=== PATIENT | female | born 1970 | race Caucasian/White ===

== ENCOUNTER 2022-10-06 19:29 | Emergency (ER) | payer OTHER ==
[2022-10-06 20:12] VITALS: TEMP 98
[2022-10-06] MEDS ORDERED: SODIUM CHLORIDE 0.9% 1,000 ML IV STA (20:51)
[2022-10-06] MEDS ORDERED: ONDANSETRON 4 MG/2 ML VIAL IVP STA (20:51)
[2022-10-06] MEDS ORDERED: MORPHINE SULFATE 4 MG/ML SYRINGE IV STA (20:51)
--- NOTE | 2022-10-06 20:51 | ED ---
Abdominal Pain HPI - General Chief Complaint: Abdominal Pain Stated Complaint: Abd pain Time Seen by Provider: 10/06/22 20:37 Source: EMS, RN notes reviewed Mode of arrival: EMS Limitations: no limitations - History of Present Illness Initial Comments: This is a pleasant 52-year-old female who comes to the ER complaining of epigastric abdominal pain. She is also complaining of bilateral lower leg swelling. Patient states that she currently is at [facility] for alcohol rehabilitation. She is been there since the seventh. Patient states she got out of [facility] 2 weeks ago after being treated for pancreatitis and gastritis. Apparently the patient also required blood transfusion at that time. She stated as an inpatient for several days. Note that the patient states she has not had any alcohol since being discharged from that facility. Patient has a history of alcoholism. , Nausea/vomiting, No headache, no fever or chills, no changes in vision or hearing, no sore throat or difficulty with speech, no neck pain, no chest pain or shortness of breath, some nausea but no vomiting. Loose bowel movements. No evidence of hematochezia or melena.no changes in urination or bowel movements, no numbness or tingling, no extremity pain, no skin rashes or lesions. Past medical, surgical, social, and family history reviewed. MD Complaint: abdominal pain - Related Data Previous Rx's Medication Instructions Recorded Acetaminophen Tab [Tylenol Tab] 500 mg PO Q6H PRN #24 tablet 10/07/22 Omeprazole [PriLOSEC] 20 mg PO DAILY #30 cap 10/07/22 Allergies Allergy/AdvReac Type Severity Reaction Status Date / Time No Known Allergies Allergy Verified 10/06/22 20:12 Review of Systems ROS Statement: Those systems with pertinent positive or pertinent negative responses have been documented in the HPI. ROS Other: All systems not noted in ROS Statement are negative. Past Medical History Past Medical History: GI Bleed Additional Past Medical History / Comment(s): pancrentitis History of Any Multi-Drug Resistant Organisms: None Reported Past Surgical History: No Surgical Hx Reported Past Psychological History: Anxiety, Depression Smoking Status: Current every day smoker Past Alcohol Use History: Abuse, Daily Past Drug Use History: Marijuana General Exam - General Exam Comments Initial Comments: Patient does not appear to be ill or toxic. Vital signs reviewed. Capillary refill less than 2 seconds. No evidence of skin mottling Limitations: no limitations General appearance: alert, in no apparent distress Head exam: Present: atraumatic, normocephalic, normal inspection Eye exam: Present: normal appearance, PERRL, EOMI. Absent: scleral icterus, conjunctival injection, periorbital swelling ENT exam: Present: normal exam, normal oropharynx, mucous membranes moist, normal external ear exam. Absent: mucous membranes dry Neck exam: Present: normal inspection, full ROM. Absent: tenderness, meningismus, lymphadenopathy Respiratory exam: Present: normal lung sounds bilaterally. Absent: respiratory distress, wheezes, rales, rhonchi, stridor, chest wall tenderness, accessory muscle use Cardiovascular Exam: Present: regular rate, normal rhythm, normal heart sounds. Absent: systolic murmur, diastolic murmur, rubs, gallop, clicks GI/Abdominal exam: Present: soft, tenderness (Epigastric area), guarding, normal bowel sounds. Absent: distended, rebound, rigid Extremities exam: Present: normal inspection, full ROM, normal capillary refill, pedal edema. Absent: tenderness, joint swelling, calf tenderness Back exam: Present: normal inspection Neurological exam: Present: alert, oriented X3, CN II-XII intact Psychiatric exam: Present: normal affect, normal mood Skin exam: Present: warm, dry, intact, normal color. Absent: rash Course Vital Signs 10/06/22 10/06/22 20:10 21:57 Temperature 98 F Pulse Rate 83 77 Respiratory 18 16 Rate Blood Pressure 115/68 129/70 O2 Sat by Pulse 98 98 Oximetry - Reevaluation(s) Reevaluation #1: 10/06/22 23:49 Medical record is reviewed Patient pain peralta is better. However continues to have some epigastric pain. Complaining of pain in her lower extremities. I suspect the lower extremity edema is related to the patient's low albumin of 2.8. Patient is informed of results and questions answered Patient in no distress Reevaluation #2: 10/07/22 00:38 Was reevaluated and is actually doing much better after IV fluids. Patient holding down fluids without difficulty. Hemoccult was negative. Patient's pain is better. I did discuss the case in detail with the on-call spinner fixer at [facility], Dr. Rey. who reviewed the patient's case from [facility]. According to his judgment, patient does not need transfer. In fact, after this I did reassess the patient she is holding down fluids without difficulty. I did offer her admission here for IV hydration. Patient states that she just wants medicine she takes at night and is able to hold down fluids without difficulty. We discussed clear liquid diet for 24-48 hours. Patient states she was supposed to follow up with a spinner fixer in [place] but she is currently at [facility]. We will have her follow up with the on-call spinner fixer here in [facility]. Medical Decision Making - Medical Decision Making Patient's lipase is 1198. Given the patient's pain in the epigastrium and the CT findings consistent with acute on chronic pancreatitis. Patient will need to be transferred for further care. She recently had a [facility] facility in [place]. we will transfer the patient back into that system. patient was offered admission. However the patient feels well enough to be discharged on clear liquid diet. The case was discussed in detail with ED attending physician. Presentation, findings, treatment plan discussed in detail. Final Assembler Dr. Rueda - Lab Data Result diagrams: 10/06/22 21:00 10/06/22 21:00 Lab Results 10/06/22 10/06/22 10/06/22 Range/Units 21:00 21:00 21:00 WBC 10.1 (3.8-10.6) k/uL RBC 2.44 L (3.80-5.40) m/uL Hgb 8.1 L (11.4-16.0) gm/dL Hct 25.1 L (34.0-46.0) % MCV 103.1 H (80.0-100.0) fL MCH 33.4 (25.0-35.0) pg MCHC 32.4 (31.0-37.0) g/dL RDW 16.0 H (11.5-15.5) % Plt Count 643 H (150-450) k/uL MPV 8.3 Neutrophils % 66 % Lymphocytes % 21 % Monocytes % 5 % Eosinophils % 5 % Basophils % 1 % Neutrophils # 6.7 (1.3-7.7) k/uL Lymphocytes # 2.1 (1.0-4.8) k/uL Monocytes # 0.5 (0-1.0) k/uL Eosinophils # 0.5 (0-0.7) k/uL Basophils # 0.1 (0-0.2) k/uL Hypochromasia Moderate Macrocytosis Moderate PT 11.6 (9.0-12.0) sec INR 1.1 (<1.2) APTT 27.2 (22.0-30.0) sec Sodium 139 (137-145) mmol/L Potassium 4.2 (3.5-5.1) mmol/L Chloride 109 H (98-107) mmol/L Carbon Dioxide 24 (22-30) mmol/L Anion Gap 6 mmol/L BUN 16 (7-17) mg/dL Creatinine 1.00 (0.52-1.04) mg/dL Est GFR (CKD-EPI)AfAm 75 (>60 ml/min/1.73 sqM) Est GFR (CKD-EPI)NonAf 65 (>60 ml/min/1.73 sqM) Glucose 96 (74-99) mg/dL Plasma Lactic Acid Bhaskar (0.7-2.0) mmol/L Calcium 7.4 L (8.4-10.2) mg/dL Total Bilirubin 0.2 (0.2-1.3) mg/dL GGT 44 H (12-43) U/L AST 19 (14-36) U/L ALT 10 (4-34) U/L Alkaline Phosphatase 97 (38-126) U/L Troponin I (0.000-0.034) ng/mL NT-Pro-B Natriuret Pep pg/mL Total Protein 6.2 L (6.3-8.2) g/dL Albumin 2.8 L (3.5-5.0) g/dL Amylase 130 H (30-110) U/L Lipase 1198 H (23-300) U/L Stool Occult Blood (Negative) 10/06/22 10/06/22 10/06/22 Range/Units 21:00 21:00 21:00 WBC (3.8-10.6) k/uL RBC (3.80-5.40) m/uL Hgb (11.4-16.0) gm/dL Hct (34.0-46.0) % MCV (80.0-100.0) fL MCH (25.0-35.0) pg MCHC (31.0-37.0) g/dL RDW (11.5-15.5) % Plt Count (150-450) k/uL MPV Neutrophils % % Lymphocytes % % Monocytes % % Eosinophils % % Basophils % % Neutrophils # (1.3-7.7) k/uL Lymphocytes # (1.0-4.8) k/uL Monocytes # (0-1.0) k/uL Eosinophils # (0-0.7) k/uL Basophils # (0-0.2) k/uL Hypochromasia Macrocytosis PT (9.0-12.0) sec INR (<1.2) APTT (22.0-30.0) sec Sodium (137-145) mmol/L Potassium (3.5-5.1) mmol/L Chloride (98-107) mmol/L Carbon Dioxide (22-30) mmol/L Anion Gap mmol/L BUN (7-17) mg/dL Creatinine (0.52-1.04) mg/dL Est GFR (CKD-EPI)AfAm (>60 ml/min/1.73 sqM) Est GFR (CKD-EPI)NonAf (>60 ml/min/1.73 sqM) Glucose (74-99) mg/dL Plasma Lactic Acid Bhaskar 0.7 (0.7-2.0) mmol/L Calcium (8.4-10.2) mg/dL Total Bilirubin (0.2-1.3) mg/dL GGT (12-43) U/L AST (14-36) U/L ALT (4-34) U/L Alkaline Phosphatase (38-126) U/L Troponin I <0.012 (0.000-0.034) ng/mL NT-Pro-B Natriuret Pep 1340 pg/mL Total Protein (6.3-8.2) g/dL Albumin (3.5-5.0) g/dL Amylase (30-110) U/L Lipase (23-300) U/L Stool Occult Blood (Negative) 10/06/22 Range/Units 22:52 WBC (3.8-10.6) k/uL RBC (3.80-5.40) m/uL Hgb (11.4-16.0) gm/dL Hct (34.0-46.0) % MCV (80.0-100.0) fL MCH (25.0-35.0) pg MCHC (31.0-37.0) g/dL RDW (11.5-15.5) % Plt Count (150-450) k/uL MPV Neutrophils % % Lymphocytes % % Monocytes % % Eosinophils % % Basophils % % Neutrophils # (1.3-7.7) k/uL Lymphocytes # (1.0-4.8) k/uL Monocytes # (0-1.0) k/uL Eosinophils # (0-0.7) k/uL Basophils # (0-0.2) k/uL Hypochromasia Macrocytosis PT (9.0-12.0) sec INR (<1.2) APTT (22.0-30.0) sec Sodium (137-145) mmol/L Potassium (3.5-5.1) mmol/L Chloride (98-107) mmol/L Carbon Dioxide (22-30) mmol/L Anion Gap mmol/L BUN (7-17) mg/dL Creatinine (0.52-1.04) mg/dL Est GFR (CKD-EPI)AfAm (>60 ml/min/1.73 sqM) Est GFR (CKD-EPI)NonAf (>60 ml/min/1.73 sqM) Glucose (74-99) mg/dL Plasma Lactic Acid Bhaskar (0.7-2.0) mmol/L Calcium (8.4-10.2) mg/dL Total Bilirubin (0.2-1.3) mg/dL GGT (12-43) U/L AST (14-36) U/L ALT (4-34) U/L Alkaline Phosphatase (38-126) U/L Troponin I (0.000-0.034) ng/mL NT-Pro-B Natriuret Pep pg/mL Total Protein (6.3-8.2) g/dL Albumin (3.5-5.0) g/dL Amylase (30-110) U/L Lipase (23-300) U/L Stool Occult Blood Negative (Negative) - EKG Data -: EKG Interpreted by Me EKG Comments: EKG done at 2109 and reviewed by the ED attending physician reveals sinus rhythm with a rate of 62. Normal intervals aside from the QT interval-. Normal axis. Baseline artifact. Possible right ventricular conduction delay with RSR pattern in V1 and V2. Prolonged QT interval by computerized interpretation with a QTC of [address] or T-wave changes. Parison study - Radiology Data Radiology results: report reviewed, image reviewed I did interpret this film myself. Agree with radiology interpretation Disposition Clinical Impression: Acute pancreatitis, Anemia, Hypoalbuminemia, Peripheral edema Disposition: HOME SELF-CARE Condition: Good Instructions (If sedation given, give patient instructions): Pancreatitis (ED), Anemia (ED) Additional Instructions: Tylenol 500 mg every 4-6 hours as needed for pain control. Elevate your legs as much as possible. Clear liquid diet for 24-48 hours. Call tomorrow morning to schedule an appointment with the spinner fixer. Follow-up with your regular physician as directed. Return to the ER immediately if any symptoms worsen, new symptoms arise, or any other problems develop. Is patient prescribed a controlled substance at d/c from ED?: No Referrals: Rossi Dutta MD [STAFF PHYSICIAN] - 10/12/22 Time of Disposition: 00:42
[2022-10-06 21:28] LABS: Basophils # (A) 0.1 k/uL (0-0.2); Basophils % (A) 1 %; Eosinophils # (A) 0.5 k/uL (0-0.7); Eosinophils % (A) 5 %; HCT 25.1 % (34.0-46.0); HGB 8.1 gm/dL (11.4-16.0); Hypochromasia Moderate; Lymphocytes # (A) 2.1 k/uL (1.0-4.8); Lymphocytes % (A) 21 %; MCH 33.4 pg (25.0-35.0); MCHC 32.4 g/dL (31.0-37.0); MCV 103.1 fL (80.0-100.0); Macrocytosis Moderate; Mean Platelet Volume 8.3; Monocytes # (A) 0.5 k/uL (0-1.0); Monocytes % (A) 5 %; Neutrophils # (A) 6.7 k/uL (1.3-7.7); Neutrophils % (A) 66 %; Platelet Count 643 k/uL (150-450); RBC 2.44 m/uL (3.80-5.40); WBC 10.1 k/uL (3.8-10.6)
[2022-10-06 21:45] LABS: Potassium 4.2 mmol/L (3.5-5.1)
[2022-10-06 21:46] LABS: Albumin 2.8 g/dL (3.5-5.0); Calcium 7.4 mg/dL (8.4-10.2); Total Bilirubin 0.2 mg/dL (0.2-1.3); Total Protein 6.2 g/dL (6.3-8.2)
--- NOTE | 2022-10-06 21:49 | XR ---
EXAMINATION TYPE: XR abdomen acute w cxr DATE OF EXAM: 10/06/2022 CLINICAL HISTORY: Upper abdominal pain TECHNIQUE: Upright frontal view of the chest. Upright abdomen radiograph and supine lower abdomen/pel vis radiograph COMPARISON: None. FINDINGS: Chest: The lungs are grossly clear without pleural effusion or pneumothorax. Cardiac silhouette size appears within normal limits. Osseous structures negative for acute findings. Abdomen and pelvis: Gas is noted in nondistended small bowel loops. Gas and fecal material is seen i n nondistended colon. Colonic stool volume is normal. No pneumoperitoneum, visceromegaly, or suspici ous calcification is identified. The osseous structures are negative for acute findings. IMPRESSION: No acute radiographic process.
[2022-10-06 21:56] LABS: INR 1.1 (<1.2); Partial Thromboplastin Time 27.2 sec (22.0-30.0); Prothrombin Time 11.6 sec (9.0-12.0)
[2022-10-06 21:58] VITALS: BP 129/70; PULSE 77; RESP 16
--- NOTE | 2022-10-06 23:44 | CT ---
EXAMINATION TYPE: CT abdomen pelvis w con DATE OF EXAM: 10/06/2022 COMPARISON: None HISTORY: epigastric abd pain, elevated lipase CT DLP: 998.1 mGycm Automated exposure control for dose reduction was used. CONTRAST: Performed with IV Contrast, patient injected with 100 mL of Isovue 300. Images obtained from the diaphragm to the floor the pelvis with the IV contrast. The lung bases are clear. No pleural effusion. Heart size is normal. No pericardial effusion. Liver spleen and stomach appear intact. There is some fat stranding around the pancreas. There is ligia e diffuse pancreatic edema. There is irregular dilation apparently of the pancreatic duct. Gallbladde r is intact. There is no adrenal mass. Kidneys show satisfactory contrast opacification. There is no hydronephrosi s. Ureters are not dilated. No retroperitoneal adenopathy. Bladder distends smoothly. No inguinal her randolph. Appendix is posterior and appears normal. No free fluid in the pelvis. No pelvic mass. Uterus is anteverted. There is no mesenteric edema. No a scites. No evidence of free air. The lumbar vertebrae have normal alignment. There is multilevel vacu um disc. No compression fracture. The bony pelvis is intact. The hip joints show some mild bilateral osteosclerosis in the femoral heads that is consistent with chronic avascular necrosis. No collapse o f the articular surface. Sacroiliac joints are intact. IMPRESSION: There is edema in and around the pancreas with apparent variable dilation of the pancreatic duct that is consistent with acute and chronic pancreatitis. 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 Normal appendix.
[2022-10-07] MEDS ORDERED: PANTOPRAZOLE 40 MG/10 ML VIAL IVP STA (00:18)
[2022-10-07] MEDS ORDERED: ACETAMINOPHEN TAB 500 MG TAB PO STA (00:35)
[2022-10-07] MEDS ORDERED: MIRTAZAPINE 15 MG TAB PO STA (00:35)
[2022-10-07] MEDS ORDERED: busPIRone HCl 10 MG TAB PO STA (00:35)
== END 2022-10-07 01:47 | disposition home or self-care (01) ==
LOC: EC 19:29
DX: K85.90 Acute pancreatitis without necrosis or infection, unspecified (principal); D64.9 Anemia, unspecified; R60.9 Edema, unspecified; F32.A Depression, unspecified; F41.9 Anxiety disorder, unspecified; F12.90 Cannabis use, unspecified, uncomplicated; Z79.899 Other long term (current) drug therapy
CPT/HCPCS: 36415; 93005; 83880; 80053; 82150; 82977; 83605; 83690; 84484; 85025; 85610; 85730; 82272; 74022; 74177; 99285; 96374; 96375 ×2; 96361 ×4; J2270; J2405; C9113; Q9967